=== PATIENT | female | born 1960 | race Caucasian/White ===

== ENCOUNTER 2018-05-28 12:19 | Emergency (ER) | payer MEDICAID ==
[2018-05-28 12:19] VITALS: BMI 34.9
[2018-05-28 12:38] VITALS: BP 138/93; PULSE 105; RESP 16; TEMP 98.7; O2SAT 95
[2018-05-28] MEDS ORDERED: Alum-Mag Hydrox-Simethicone Susp (30 mL) PO STA (13:30)
--- NOTE | 2018-05-28 13:32 | C.PDOC ---
History Of Present Illness 57 year old presents to ED with complaint of nausea, vomiting, and diarrhea since 4 am. 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 Patient last vomited in ambulance en route to ED . Patient denies headache, chest pain, and SOB. Time Seen by Provider: 05/28/18 13:26 Chief Complaint (Nursing): GI Problem History Per: Patient History/Exam Limitations: no limitations Onset/Duration Of Symptoms: Hrs Current Symptoms Are (Timing): Still Present Associated Symptoms: Nausea, Vomiting, Diarrhea. denies: Fever Past Medical History Reviewed: Historical Data, Nursing Documentation, Vital Signs Vital Signs: Last Vital Signs Temp 98.7 F 05/28/18 12:35 Pulse 105 H 05/28/18 12:35 Resp 16 05/28/18 12:35 BP 138/93 H 05/28/18 12:35 Pulse Ox 95 05/28/18 12:35 - Medical History PMH: Asthma, HTN Denies: Diabetes, Hepatitis, HIV, Chronic Kidney Disease, Seizures, Sexually Transmitted Disease Surgical History: No Surg Hx - [facility] Procedures INSPECTION OF BLADDER, ENDO (05/01/15) PSYCHIA INTERV/EVAL NEC (09/16/13) RELEASE BILATERAL FALLOPIAN TUBES, PERC ENDO APPROACH (05/01/15) RESECTION OF CERVIX, PERCUTANEOUS ENDOSCOPIC APPROACH (05/01/15) RESECTION OF UTERUS, PERCUTANEOUS ENDOSCOPIC APPROACH (05/01/15) ROBOTIC ASSISTED PROCEDURE OF TRUNK, PERC ENDO APPROACH (05/01/15) Family History: States: Unknown Family Hx - Social History Hx Tobacco Use: No Hx Alcohol Use: No Hx Substance Use: No - Immunization History Hx Tetanus Toxoid Vaccination: Yes Hx Influenza Vaccination: Yes Hx Pneumococcal Vaccination: Yes Review Of Systems Constitutional: Negative for: Fever, Chills, Weakness Cardiovascular: Negative for: Chest Pain Respiratory: Negative for: Cough, Shortness of Breath Gastrointestinal: Positive for: Nausea, Vomiting, Diarrhea Neurological: Negative for: Weakness, Numbness, Dizziness Physical Exam - Physical Exam Appears: Well, Non-toxic, No Acute Distress, Other (obese) Skin: Normal Color, Warm, Dry Head: Atraumatic, Normacephalic Neck: Normal ROM, Supple Chest: Symmetrical, No Deformity Respiratory: No Accessory Muscle Use Gastrointestinal/Abdominal: Soft, No Tenderness, No Guarding, No Rebound Extremity: Capillary Refill (< 2 seconds) Extremity: Bilateral: Atraumatic, Normal Color And Temperature Neurological/Psych: Oriented x3, Normal Speech, Normal Cognition, Other (pleasant) ED Course And Treatment O2 Sat by Pulse Oximetry: 95 (RA) Progress Note: Patient given Maalox PO, Pepcid PO, and Zofran PO. Upon reassessment, patient is resting comfortably, in no distress, and is stable for discharge. Patient is advised to follow-up with PMD in 1-2 days. Patient is advised to return to ED if symptoms persist or worsen. Medical Decision Making Medical Decision Making: prob viral gastroenteritis- vom and diarrhea as per pt's homemaker client no s/s of dehydration belly benign ok for opt tx Disposition Doctor Will See Patient In The: Office Counseled Patient/Family Regarding: Studies Performed, Diagnosis - Disposition Referrals: [facility] [Outside] [facility] [Outside] [facility] [Outside] Chetna Armenta [Staff Provider] - Disposition: HOME/ ROUTINE Disposition Time: 13:31 Condition: GOOD Additional Instructions: Zofran 4 mg ODT 1 tableta cada 6-8 horas para los vomitos margaret necessario Pepcid 20 mg cada 12 horas- se baja el acides del estomago Maalox 30 cc (usha cucharada 5 veces al wendy por 3 frank) se baja molesta de los intestinos/colon Dieta de BRAT: Bananas, arroz hyde, manzana, dumas kostas grace agua/Gatorade Prescriptions: Ondansetron ODT [Zofran ODT] 4 mg PO Q6H PRN #6 odt PRN Reason: Nausea/Vomiting Instructions: Diarrhea in Adolescents and Adults, Nausea and Vomiting, Adult Forms: [employer] (Korean) Print Language: BELARUSIAN - Clinical Impression Clinical Impression: Vomiting, Diarrhea - Scribe Statement The provider has reviewed the documentation as recorded by the Scribe (Shae Tomlin) All medical record entries made by the Scribe were at my direction and personally dictated by me. I have reviewed the chart and agree that the record accurately reflects my personal performance of the history, physical exam, medical decision making, and the department course for this patient. I have also personally directed, reviewed, and agree with the discharge instructions and disposition.
[2018-05-28] MEDS ORDERED: Alum-Mag Hydrox-Simethicone Susp (30 mL) ONE (13:44)
== END 2018-05-28 14:36 | disposition home or self-care (01) ==
LOC: C.ER 12:19
DX: R11.2 Nausea with vomiting, unspecified (principal); R19.7 Diarrhea, unspecified